=== PATIENT | female | born 1995 | race Caucasian/White ===

== ENCOUNTER 2022-09-11 08:00 | Emergency (ER) | payer MEDICAID ==
[~2022-09-11] VITALS: Ht 172.7 cm; Wt 91.0 kg
[2022-09-11 08:18] VITALS: BP 136/98
[2022-09-11] MEDS ORDERED: DEXAMETHASONE 4MG TABLET PO ONE (09:30)
[2022-09-11] MEDS ORDERED: PSEU120T84 MT (09:32)
[2022-09-11] MEDS ORDERED: IBUP-2029 MT (09:32)
== END 2022-09-11 10:19 | disposition home or self-care (01) ==
LOC: ER 08:00
DX: J06.9 Acute upper respiratory infection, unspecified (principal)
CPT/HCPCS: 99283; J8540